=== PATIENT | male | born 1980 | race Caucasian/White ===

== ENCOUNTER 2019-06-26 22:03 | Observation (INO) | payer BC ==
[~2019-06-26] VITALS: Ht 177.8 cm; Wt 90.3 kg
[2019-06-26] MEDS ORDERED: SUDAFED 12 HOU120 MG PO (22:13)
--- NOTE | 2019-06-26 22:33 | NUR ---
Pt. arrived to the floor ambulating independently. Pt. is A&OX3, assessment complete. INT to rt. hand patent. Pt. reports pain at a 2 on pain scale at this time. Dr. Darby notified of Pt. arrival. Anes. Mcnamara notified of plan for surgery. Pt. denies further needs at this time.
[2019-06-26 22:35] VITALS: BP 150/97; PULSE 94; TEMP 98.6
[2019-06-26 22:40] VITALS: BP 150/97; PULSE 94; TEMP 98.6
[2019-06-27] VITALS (11 sets, daily range): BP systolic 116–133; BP diastolic 76–88; PULSE 67–118; TEMP 98.3–99.4
--- NOTE | 2019-06-27 10:00 | NUR ---
Patient alert and oriented, answers questions appropriately. See assessment. Abdomen soft, non tender, non distended. Bowel sounds active x4 quads. +Flatus. Lap sites with edges well approximated, no redness or drainage noted. No c/o of pain or discomfort.
--- NOTE | 2019-06-27 10:22 | NUR ---
SW met with the patient to discuss discharge plan. The patient lives alone in [place]. He states that his mother, Delilah ([id number]#[phone]), lives outside of [place]. He reports independence with ADLs and does not have any DME. The patient's primary care provider is Tanika Conklin PA-C and he receives his medications at [facility]. He reports no difficulties obtaining his meds. The patient does not have advanced directives in EMR, but he states that he does have them completed and that his mother is his DPOA-HC. The patient plans to return home upon discharge. No additional needs at this time.
--- NOTE | 2019-06-27 11:45 | NUR ---
First visit from the copy coordinator. No needs right now.
--- NOTE | 2019-06-27 12:30 | NUR ---
Dr Darby here to see patient.
[2019-06-27] MEDS ORDERED: NORCO 325 MG-51 TAB PO (12:35)
--- NOTE | 2019-06-27 17:02 | NUR ---
Discharge instructions reviewed with patient and family, verbalized understanding. Discharged via wheelchair to auto/home with family at 1650.
== END 2019-06-27 16:50 | disposition home or self-care (01) ==
LOC: SURG 22:03
PROVIDERS: ADMIT Surgery
DX: K35.80 Unspecified acute appendicitis (principal); F17.210 Nicotine dependence, cigarettes, uncomplicated; Z79.899 Other long term (current) drug therapy
CPT/HCPCS: G0378; G0379; J1100; J1885; J2405; J2704; J3010; J7120